=== PATIENT | female | born 1995 | race Caucasian/White ===

== ENCOUNTER → 2017-03-03 | Outpatient (CLI) | payer BC ==
[2017-03-06 15:43] LABS: CHLAMYDIA TRACH RNA*** NOT DETECTED (NOT DETECTED); GC (NEIS GONORRHOEAE)RNA** NOT DETECTED (NOT DETECTED)
== END | disposition home or self-care (01) ==
LOC: C.LABSPEC 17:27
PROVIDERS: ATTEND Physician Assistant
DX: Z01.419 Encounter for gynecological examination (general) (routine) without abnormal findings (principal)

== ENCOUNTER 2025-01-20 07:56 | Inpatient (IN) ==
[2025-01-20] MEDS ORDERED: OXYTOCIN 30 UNITS/NSS 30 UNITS/500 ML BAG IV PRN ×2 (08:55→23:49)
[2025-01-20] MEDS ORDERED: LIDOCAINE 1% LOCAL 20 ML VIAL INFIL PRN (08:55)
--- NOTE | 2025-01-20 09:01 | History & Physical Report ---
Date of Service January 20, 2025 Assessment & Plan (1) Supervision of normal first : (2) SROM (spontaneous rupture of membranes): Plan 29 yo G1 at 37 6/7 wga presents w/ srom/labor Mild range bp noted but pt painful and fairly anxious. Denies s/s, will get pih labs as well Fetus cat 1 Labor - will see how ctx go and can augment w/ pit prn GBS neg epidural prn History of Present Illness Chief Complaint: ctx, ?lof Primary Care Provider: Jnenifer Perkins MD 29 yo G1 at 37 6/7 wga presents w/ worsening ctx and LOF. Initially called w/ mucous plug coming out around 3-4am, then over the next hour ctx and lof worsened so presented for evaluation. +FM and ctx at home q5. 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 remote hx ct Allergies Allergy/AdvReac Type Severity Reaction Status Date / Time Pork/Porcine Containing Allergy Nausea/Vomi Verified 01/20/25 09:00 Products ting Home Medications Medication Instructions Recorded Confirmed Type vitamin PO DAILY 02/21/24 01/14/25 History omega-3 fatty acids [Fish Oil] PO 06/19/24 01/14/25 History aspirin 81 mg tablet,delayed 81 mg PO DAILY 08/20/24 01/14/25 History release (Adult Low Dose Aspirin) Patient History Medical History LGSIL on Pap smear of cervix Chlamydia Alcoholic intoxication Hypertension Fractured medial malleolus (03/13/13) Surgical History Status post colposcopy S/P wisdom tooth extraction Status post ORIF of fracture of ankle History of removal of skin mole History of biopsy Family History Grandmother (Maternal) Breast cancer Mother Hypertension Grandfather (Maternal) Hypertension Grandfather (Paternal) Dementia Family/Other Skin cancer Denies family history of Ovarian cancer Prostate cancer Myocardial infarction Colorectal cancer Social History Smoking Status: Former smoker Tobacco Type: Cigarettes Second Hand Exposure: No; Do You Dip or Chew Tobacco: No; Hx Alcohol Use: No Hx Substance Use: No Preferred Language: Kiswahili Communication Ability: Effective 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 Beliefs That Will Affect Care: None and Orthodoxy Orthodoxy Beliefs: rastafari marital status: marital status details: Alonso Madison([phone] Current Living Situation: Spouse Current Living Situation Comment: lives with spouse, cat-spouse to change litter current occupational status: employed 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 caffeine: Yes Dental Care, Regularly: Yes Physical Activity Frequency: 1-2 Times per Week Seatbelt Use: always Sunscreen Use: Yes Assistive Devices: Contacts and Glasses Physical Exam Genitourinary: OB Exam Abdomen: + estimated weight (7-8) Manual OB Exam: + cervical dilation 3 cm, + cervical effacement 70%, + station -2 and + amniotic fluid (+nitrazine, pooling, ferning) OB Exam Monitor Tracing: + external FHT monitor used, + external uterine monitor used and + category I (130/mod/+accel/-decel) Results & Data Vital Signs (Past 12 Hours) Vital Signs Temp Pulse Resp BP 01/20/25 08:28 101 H 132/90 01/20/25 08:18 108 H 148/90 H 01/20/25 08:07 104 H 152/97 H 01/20/25 08:06 18 01/20/25 08:06 97.9 F 18 Laboratory Results OB Labs: Blood Type O Positive 07/22/24 Antibody Screen NEGATIVE 07/22/24 Hgb 11.3 g/dl (12.0-16.0) L 11/11/24 Hct 33.3 % (37.0-47.0) L 11/11/24 MCV 87.8 fL (80.0-100.0) 07/22/24 Plt Count 370 K/uL (130-400) 07/22/24 Rubella IgG Antibody Immune (Immune) 07/22/24 Treponema pallidum Ab Negative (Negative) 11/11/24 Hep Bs Antigen Negative (Negative) 07/22/24 Hepatitis C Antibody Negative (Negative) 07/22/24 HIV 1&2 Ab/P24 Ag 4thGn Negative (Negative) 07/22/24 Glucose 1 Hr 50 gm 148 mg/dl (70-130) H 11/11/24 OB Optional Labs: Chlamydia trachomatis RNA Not Detected (NotDetected) 07/22/24 Neisseria gonorrhoeae RNA Not Detected (NotDetected) 07/22/24 Thyroid Stimulating Hormone (TSH) 2.610 uIu/ml (0.300-4.500) 04/05/21 Labs Reviewed: carrier screening-negative--mln cfdna-low risk--mln GBS neg Diagnostic Findings 01/08 EFW 47%, AC 52%, ant plac Coding Level of Care Code None Diagnoses Supervision of normal first Z34.00 SROM (spontaneous rupture of membranes)
[2025-01-20] MEDS: LACTATED RINGER'S 1,000 ML IV PRN (09:20)
[2025-01-20 09:32] LABS: Hematocrit (blood only) 33.8 % (37.0-47.0); Hemoglobin 11.3 g/dl (12.0-16.0); Mean Corpuscular Hemoglobin 28.5 pg (25.0-34.0); Mean Corpuscular Hgb Conc 33.4 g/dL (32.0-36.0); Mean Corpuscular Volume 85.4 fL (80.0-100.0); Mean Platelet Volume 9.7 fL (9.4-12.4); Platelet Count 240 K/uL (130-400); RDW Coefficient of Variation 14.2 % (11.5-14.5); RDW Standard Deviation 43.9 fL (36.4-46.3); Red Blood Count 3.96 M/uL (4.20-5.40); White Blood Count 9.93 K/ul (4.8-10.8)
[2025-01-20 09:48] LABS: Albumin Globulin Ratio 1.4 (0.9-2); Albumin Level 3.7 gm/dl (3.4-5.0); BUN Creatinine Ratio 10.2 (10-20); Bilirubin,Total 0.4 mg/dl (0.2-1.0); Calcium 8.9 mg/dl (8.6-10.3); Creatinine Clr Calc Pharmacy 178.1 ml/min; Globulin 2.7 gm/dl (2.5-4.0); Potassium 3.9 mmol/L (3.5-5.1); Total Protein 6.4 gm/dl (6.0-8.3)
[2025-01-20] MEDS ORDERED: NALOXONE HCL 0.4 MG/1 ML VIAL/CARP IV PRN (14:25)
[2025-01-20] MEDS ORDERED: fentaNYL citrate PF 100 MCG/2 ML VIAL EPI PRN (14:25)
[2025-01-20] MEDS ORDERED: ROPIVACAINE 0.5% PF 5 MG/ML 20 ML VIAL EPI PRN (14:25)
[2025-01-20] MEDS ORDERED: fentANYL 2 MCG/ML BUPIVacaine 0.125%-NSS 100ML BAG EPI PRN (14:25)
[2025-01-20] MEDS ORDERED: diphenhydrAMINE 50 MG/ML VIAL IV PRN (14:25)
[2025-01-20] MEDS ORDERED: NALOXONE HCL 1 MG in SODIUM CHLORIDE 0.9% 1,000 ML IV PRN (14:25)
[2025-01-20] MEDS ORDERED: LIDOCAINE 2% MPF LOCAL 5 ML VIAL EPI PRN (14:25)
[2025-01-20] MEDS ORDERED: SODIUM CHLORIDE 0.9% PF INJ 10 ML VIAL EPI PRN (14:25)
[2025-01-20] MEDS ORDERED: NALBUPHINE HCL INJ 10 MG/ML AMP IV PRN (14:25)
--- NOTE | 2025-01-20 14:28 | Anesthesiology Consultation ---
Date of Service January 20, 2025 Assessment & Plan Chart Review Chart Review: Patient NOT seen in Pre Admission Testing and Acceptable Risk for Labor Epidural Consults Requested none ASA ASA2 Proposed Anesthesia Anesthesia Type: Labor Epidural Risk / Benefits Reviewed With: PT / POA / Parent / Guardian, Accepts Plan and Informed Consent Obtained History Height/Weight Height: 5 ft 3 in Weight: 90.974 kg Allergies Allergy/AdvReac Type Severity Reaction Status Date / Time Pork/Porcine Containing Allergy Nausea/Vomi Verified 01/20/25 09:00 Products ting Medications Home Medications Medication Instructions Recorded Confirmed Last Taken vitamin PO DAILY 02/21/24 01/14/25 01/19/25 20:00 omega-3 fatty acids [Fish Oil] PO 06/19/24 01/14/25 01/19/25 aspirin 81 mg tablet,delayed 81 mg PO DAILY 08/20/24 01/14/25 01/19/25 20:00 release (Adult Low Dose Aspirin) Active Medications Generic Name Dose Route Start Last Admin Trade Name Freq PRN Reason Stop Dose Admin Bupivacaine HCl 30 ml 01/20/25 14:25 01/20/25 14:53 Bupivacaine 0.25% Pf 30 Ml Vial EPI 01/21/25 14:24 30 ml ONCE PRN Administration Epidural Redose Lactated Ringer's 1,000 mls @ 125 mls/hr 01/20/25 08:55 01/20/25 14:28 Lr IV 01/21/25 08:54 999 mls/hr .Q8H PRN Administration L&D Protocol Protocol NPO Date Last Intake of Fluids: 01/20/25 Time Last Intake of Fluids: 14:00 Date Last Intake of Solids: 01/19/25 Time Last Intake of Solids: 17:00 Past Medical History Medical History LGSIL on Pap smear of cervix Chlamydia Alcoholic intoxication Hypertension Fractured medial malleolus (03/13/13) Exercise / Class Metabolic Activity 1 > 8 Run/Swim/Ski/Tennis Past Family History Family History Grandmother (Maternal) Breast cancer Mother Hypertension Grandfather (Maternal) Hypertension Grandfather (Paternal) Dementia Family/Other Skin cancer Denies family history of Ovarian cancer Prostate cancer Myocardial infarction Colorectal cancer Past Surgical History Surgical History Status post colposcopy S/P wisdom tooth extraction Status post ORIF of fracture of ankle History of removal of skin mole 2015; back History of biopsy Past Anesthesia History No Hx of Anesthesia Complications and No Family Hx of Anesthesia Complications History of PONV No Hx of PONV and No Hx of Motion Sickness Social History Smoking Status: Former smoker Do You Dip or Chew Tobacco: No Hx Alcohol Use: No Hx Substance Use: No Review of Systems ROS Unobtainable: All systems reviewed & are unremarkable except as noted in HPI & below Physical Exam Vital Signs Last Vital Signs Temp 36.8 C 01/20/25 12:37 Pulse 90 01/20/25 13:50 Resp 18 01/20/25 13:00 BP 139/82 01/20/25 13:50 ENMT Mouth: no TMJ abnormality Thyromental Distance: > or= 3.5 Finger Breadths Mallampati Class: II Neck normal visual inspection and trachea midline; neck extension not limited Respiratory normal respiratory effort Auscultation: lungs clear to auscultation bilaterally Cardiovascular Rate/Rhythm: regular rate and regular rhythm Heart Sounds: no murmur Musculoskeletal Spine: normal cervical ROM Extremities: full ROM of extremities Neurologic moves all extremities Psychiatric Orientation: alert and oriented x 3 Testing Laboratory Results 01/20/25 09:00 01/20/25 09:05 Blood Type O Positive 01/20/25 09:00 Antibody Screen NEGATIVE 01/20/25 09:00
[2025-01-20] MEDS: fentANYL 2 MCG/ML BUPIVacaine 0.125%-NSS 100ML BAG ONE (14:52)
[2025-01-20] MEDS: BUPIVACAINE 0.25% PF 30 ML VIAL EPI STA (14:53)
[2025-01-20] MEDS: BUPIVACAINE 0.25% PF 30 ML VIAL EPI PRN (14:53)
[2025-01-20] MEDS: fentaNYL citrate PF 100 MCG/2 ML VIAL EPI STA (14:53)
[2025-01-20] MEDS: LIDOCAINE 2%/EPINEPHRINE 1:200,000 20 ML PF EPI STA (14:53)
[2025-01-20] MEDS: ePHEDrine sulfate 50 MG/ML AMP IV PRN (15:15)
[2025-01-20] MEDS: OXYTOCIN 30 UNITS/NSS 30 UNITS/500 ML BAG IV PRN (15:45)
[2025-01-20] MEDS: SODIUM CHLORIDE 0.9% PF INJ 10 ML VIAL ONE (15:54)
[2025-01-20] MEDS: BUPIVACAINE 0.25% PF 30 ML VIAL ONE (15:54)
[2025-01-20] MEDS: fentaNYL citrate PF 100 MCG/2 ML VIAL ONE (15:55)
[2025-01-20] MEDS: ePHEDrine sulfate 50 MG/ML AMP ONE (15:55)
[2025-01-20] MEDS: LIDOCAINE 2%/EPINEPHRINE 1:200,000 20 ML PF ONE (15:55)
[2025-01-20] MEDS: SODIUM CHLORIDE 0.9% PF INJ 10 ML VIAL EPI STA (15:56)
--- NOTE | 2025-01-20 16:40 | Labor Progress Brief Note ---
Date of Service January 20, 2025 Subjective comfortable w/ epidural Assessment & Plan (1) Supervision of normal first : (2) SROM (spontaneous rupture of membranes): Plan 29 yo G1 at 37 6/7 wga presents w/ srom/labor Mild range bp noted but pt painful and fairly anxious. Denies s/s, will get pih labs as well Fetus cat 1 Labor - pit started as ctx spaced, progress noted. GBS neg epidural in place Admission and Anticipated Discharge Date Admission Date: January 20, 2025 Physical Exam Genitourinary: Manual OB Exam: + cervical dilation 4 cm, + cervical effacement 90% and + station -2 OB Exam Monitor Tracing: + external FHT monitor used, + external uterine monitor used (q4) and + category I (130/mod/+accel/-decel) Results & Data Vital Signs (Past 12 Hours) Vital Signs Temp Pulse Resp BP Pulse Ox 01/20/25 16:36 111 H 90 01/20/25 16:34 114 H 100 01/20/25 16:33 105 H 122/64 01/20/25 16:29 102 H 100 01/20/25 16:24 104 H 100 01/20/25 16:20 112 H 92 01/20/25 16:19 114 H 100 01/20/25 16:18 123 H 116/62 01/20/25 16:14 123 H 92 01/20/25 16:09 106 H 100 01/20/25 16:04 130 H 95 01/20/25 16:03 110 H 122/64 01/20/25 16:00 18 01/20/25 16:00 18 01/20/25 15:59 123 H 100 01/20/25 15:54 116 H 100 01/20/25 15:49 120 H 100 01/20/25 15:44 122 H 113/59 L 97 01/20/25 15:40 121 H 112/58 L 01/20/25 15:39 122 H 100 01/20/25 15:36 112 H 124/60 01/20/25 15:34 102 H 100 01/20/25 15:29 114 H 112/60 99 01/20/25 15:24 115 H 110/61 100 01/20/25 15:20 94 H 116/62 01/20/25 15:19 91 H 100 01/20/25 15:16 136 H 106/62 01/20/25 15:14 94 H 101/56 L 100 01/20/25 15:13 107 H 93 01/20/25 15:12 100 H 83/46 L 01/20/25 15:10 93 H 82/47 L 01/20/25 15:09 92 H 100 01/20/25 15:05 111 H 93/50 L 01/20/25 15:04 111 H 100 01/20/25 14:59 100 01/20/25 14:59 112 H 01/20/25 14:59 121 H 103/59 L 01/20/25 14:57 101 H 94/53 L 01/20/25 14:55 95 H 85/48 L 01/20/25 14:54 82 100 01/20/25 14:53 106 H 98/50 L 01/20/25 14:51 116 H 128/73 01/20/25 14:49 121 H 127/79 100 01/20/25 14:48 118 H 94 01/20/25 14:47 118 H 182/92 H 01/20/25 14:45 114 H 159/95 H 01/20/25 14:44 109 H 100 01/20/25 14:43 102 H 132/86 01/20/25 14:39 115 H 100 01/20/25 14:34 109 H 100 01/20/25 13:50 90 139/82 01/20/25 13:00 18 01/20/25 13:00 18 01/20/25 12:37 20 01/20/25 12:37 98.2 F 20 01/20/25 10:49 98.4 F 18 01/20/25 10:44 92 H 139/85 01/20/25 08:28 101 H 132/90 01/20/25 08:18 108 H 148/90 H 01/20/25 08:07 104 H 152/97 H 01/20/25 08:06 18 01/20/25 08:06 97.9 F 18 Coding Level of Care Code None Diagnoses Supervision of normal first Z34.00 SROM (spontaneous rupture of membranes)
[2025-01-20 18:00] LABS: Protein Creatinine Ratio Urine 0.3 (0-0.2); Total Protein Urine Random 19.4 mg/dl (0-11.9)
--- NOTE | 2025-01-20 19:41 | Labor Progress Brief Note ---
Date of Service January 20, 2025 Subjective comfortable w/ epidural Assessment & Plan (1) Supervision of normal first : (2) SROM (spontaneous rupture of membranes): Plan 29 yo G1 at 37 6/7 wga presents w/ srom/labor VSS - UP:C returned as 0.3 and she had intermittent elev bps before epidural but unsure if pain related or when she was resting. Will need to continue to monitor Fetus cat 1 Labor - pit at 6 w/ good progress. Will continue repositoining and hopefully can start pushing in a bit GBS neg epidural in place Admission and Anticipated Discharge Date Admission Date: January 20, 2025 Physical Exam Genitourinary: Manual OB Exam: + cervical dilation, + cervical effacement 90% and + station 0 OB Exam Monitor Tracing: + external FHT monitor used, + external uterine monitor used (q4) and + category I (130/mod/+accel/-decel) Results & Data Vital Signs (Past 12 Hours) Vital Signs Temp Pulse Resp BP Pulse Ox 01/20/25 19:36 126 H 100 01/20/25 19:34 117 H 116/96 01/20/25 19:31 120 H 97 01/20/25 19:26 118 H 100 01/20/25 19:21 113 H 100 01/20/25 19:16 110 H 100 01/20/25 19:11 123 H 100 01/20/25 19:06 119 H 100 01/20/25 19:00 18 01/20/25 19:00 98.8 F 18 01/20/25 18:49 100 01/20/25 18:49 115 H 01/20/25 18:49 110 H 129/72 01/20/25 18:44 114 H 100 01/20/25 18:39 107 H 100 01/20/25 18:34 105 H 100 01/20/25 18:33 111 H 127/73 01/20/25 18:30 18 01/20/25 18:30 18 01/20/25 18:29 105 H 100 01/20/25 18:24 110 H 100 01/20/25 18:19 93 01/20/25 18:19 112 H 01/20/25 18:19 109 H 130/77 01/20/25 18:14 114 H 96 01/20/25 18:09 106 H 100 01/20/25 18:04 105 H 100 01/20/25 18:03 120 H 122/79 01/20/25 18:00 18 01/20/25 18:00 18 01/20/25 17:59 108 H 100 01/20/25 17:54 113 H 100 01/20/25 17:49 105 H 100 01/20/25 17:48 104 H 123/82 01/20/25 17:44 108 H 100 01/20/25 17:42 109 H 92 01/20/25 17:39 110 H 100 01/20/25 17:37 113 H 90 01/20/25 17:34 110 H 99 01/20/25 17:33 99 H 123/79 01/20/25 17:30 18 01/20/25 17:30 98.1 F 18 01/20/25 17:30 18 01/20/25 17:30 18 01/20/25 17:29 118 H 100 01/20/25 17:24 103 H 100 01/20/25 17:19 96 H 100 01/20/25 17:18 111 H 114/73 01/20/25 17:14 112 H 100 01/20/25 17:09 107 H 100 01/20/25 17:04 118 H 100 01/20/25 17:03 115 H 113/82 01/20/25 17:00 105 H 93 01/20/25 16:59 99 H 100 01/20/25 16:54 105 H 100 01/20/25 16:49 108 H 100 01/20/25 16:48 115 H 125/69 01/20/25 16:45 108 H 89 L 01/20/25 16:44 117 H 100 01/20/25 16:39 109 H 100 01/20/25 16:37 18 01/20/25 16:37 18 01/20/25 16:36 111 H 90 01/20/25 16:34 114 H 100 01/20/25 16:33 105 H 122/64 01/20/25 16:30 18 01/20/25 16:30 18 01/20/25 16:29 102 H 100 01/20/25 16:24 104 H 100 01/20/25 16:20 112 H 92 01/20/25 16:19 114 H 100 01/20/25 16:18 123 H 116/62 04/28/25 16:14 123 H 92 01/20/25 16:09 106 H 100 01/20/25 16:04 130 H 95 01/20/25 16:03 110 H 122/64 01/20/25 16:00 18 01/20/25 16:00 18 01/20/25 15:59 123 H 100 01/20/25 15:54 116 H 100 01/20/25 15:49 120 H 100 01/20/25 15:44 122 H 113/59 L 97 01/20/25 15:40 121 H 112/58 L 01/20/25 15:39 122 H 100 01/20/25 15:36 112 H 124/60 01/20/25 15:34 102 H 100 01/20/25 15:29 114 H 112/60 99 01/20/25 15:24 115 H 110/61 100 01/20/25 15:20 94 H 116/62 01/20/25 15:19 91 H 100 01/20/25 15:16 136 H 106/62 01/20/25 15:14 94 H 101/56 L 100 01/20/25 15:13 107 H 93 01/20/25 15:12 100 H 83/46 L 01/20/25 15:10 93 H 82/47 L 01/20/25 15:09 92 H 100 01/20/25 15:05 111 H 93/50 L 01/20/25 15:04 111 H 100 01/20/25 14:59 100 01/20/25 14:59 112 H 01/20/25 14:59 121 H 103/59 L 01/20/25 14:57 101 H 94/53 L 01/20/25 14:55 95 H 85/48 L 01/20/25 14:54 82 100 01/20/25 14:53 106 H 98/50 L 01/20/25 14:51 116 H 128/73 01/20/25 14:49 121 H 127/79 100 01/20/25 14:48 118 H 94 01/20/25 14:47 118 H 182/92 H 01/20/25 14:45 114 H 159/95 H 01/20/25 14:44 109 H 100 01/20/25 14:43 102 H 132/86 01/20/25 14:39 115 H 100 01/20/25 14:34 109 H 100 01/20/25 13:50 90 139/82 01/20/25 13:00 18 01/20/25 13:00 18 01/20/25 12:37 20 01/20/25 12:37 98.2 F 20 01/20/25 10:49 98.4 F 18 01/20/25 10:44 92 H 139/85 01/20/25 08:28 101 H 132/90 01/20/25 08:18 108 H 148/90 H 01/20/25 08:07 104 H 152/97 H 01/20/25 08:06 18 01/20/25 08:06 97.9 F 18 Coding Level of Care Code None Diagnoses Supervision of normal first Z34.00 SROM (spontaneous rupture of membranes)
--- NOTE | 2025-01-20 22:04 | Anesthesia Procedure Note ---
Date of Service January 20, 2025 Anesthesia Post Epidural Note Vital Signs Vital Signs: Temp Pulse Resp BP Pulse Ox 37.2 C 124 H 18 119/59 L 97 01/20/25 21:05 01/20/25 22:01 01/20/25 21:05 01/20/25 21:56 01/20/25 22:01 Notes Mental Status: alert / awake / arousable and participated in evaluation Nausea / Vomiting: adequately controlled Pain: adequately controlled Airway Patency, RR, SpO2: stable & adequate BP & HR: stable & adequate Hydration State: stable & adequate Neuraxial Anesthesia: was administered and sensory block is resolving Anesthetic Complications: no major complications apparent Epidural: Removed without complications and With tip intact
--- NOTE | 2025-01-20 23:11 | Delivery Summary ---
Vaginal Delivery Summary Date of Service January 20, 2025 Vaginal Delivery Summary and 1st Degree LAC PREOPERATIVE DIAGNOSIS: 1. Single intrauterine at 37 6/7 wga 2. SROM POSTOPERATIVE DIAGNOSIS: 1. Single intrauterine at 37 6/7 wga 2. SROM 3. Delivered PROCEDURE: 1. Normal spontaneous vaginal delivery. SURGEON: Alison Reddy MD ANESTHESIA: Epidural. QUANTITATIVE BLOOD LOSS: 100 mL FLUIDS: Continuous LR. URINE OUTPUT: None. COMPLICATIONS: None. CONDITION: Stable. INDICATIONS: 29 yo G1 at 37 6/7 wga presented with ctx and LOF and found to be srom. She received an epidural and started on pitocin due to ctx spacing. She progressed to complete and desired to push FINDINGS: A viable male infant, weight pending with Apgars of 9 and 9 at 1 and 5 minutes respectively. SPECIMEN: Cord blood OPERATIVE REPORT: The patient progressed to 10 cm, 100% effaced and +2 station, pushed over intact perineum with anesthesia to deliver a viable male , weight and Apgars as above. Head of delivered in LINCOLN position. No nuchal cord was present. Body and shoulders were delivered without difficulty. was delivered to maternal abdomen and nursing staff. Delayed cord clamping was performed for 60 seconds. Cord was clamped and cut. Cord blood was obtained. Placenta delivered spontaneously intact with 3-vessel cord. IV oxytocin and fundal massage were given for excellent hemostasis. Vagina, cervix, perineum, and placenta were inspected. A first degree laceration was repaired using 3-0 vicryl. There was excellent hemostasis Sponge and needle counts correct x2. No sponges were left behind. Mother and stable in immediate period. [facility] – [place], [place] Vaginal Delivery Charge Vaginal Delivery Codes: 39195 global code for the antepartum, delivery, and post- Delivery Type Details: and 1st Degree LAC
[2025-01-20] MEDS ORDERED: ACETAMINOPHEN 325 MG TAB PO PRN (23:49)
[2025-01-20] MEDS ORDERED: HYDROCORTISONE ACETATE 25 MG SUPP PR PRN (23:49)
[2025-01-20] MEDS ORDERED: bisacodyL 10 MG SUPP PR PRN (23:49)
[2025-01-21] MEDS: IBUPROFEN 600 MG TAB PO PRN (00:01)
[2025-01-21] MEDS: BENZOCAINE 20% SPRY 85 APPLN/85 GM CAN EXT PRN (00:02)
[2025-01-21] MEDS: DIPHTHER/TETAN/PERTUS Vaccine (Tdap, Adol/Adult) 0.5mL IM ONE (01:04)
[2025-01-21] MEDS ORDERED: Nursing to Pharmacy Communication SCH (07:45)
--- NOTE | 2025-01-21 07:46 | Obstetrical Progress Note ---
Date of Service January 21, 2025 Assessment & Plan (1) Encounter for care and examination after delivery: 29 yo PP1 from , doing well -Meeting all pp milestones -O+/rubella immune/ -f/u 6 weeks for appt. Few mild range bps after delivery but had normal labs other than UP:C 0.3 yesterday. Will continue to monitor Subjective Ambulation: ambulating normally Voiding: no voiding problems Passing Gas:: Yes Diet Tolerance:: regular diet Lochia:: Small Feeding Type:: breast feeding Pain well managed with medication Review of Systems Denies fevers, chills, n/v, LEVIN, CP, SOB Physical Exam Constitutional WD/WN, vitals as above no acute distress Respiratory normal respiratory effort, lungs clear to auscultation Cardiovascular RRR, no murmur, no edema Gastrointestinal (Abdomen) Percussion/Palpation: abdomen soft; abdomen nontender fundus firm at umbilicus and NT Musculoskeletal BLE symmetric, nonerythematous, nontender Results & Data Vital Signs (Past 12 Hours) Vital Signs Temp Pulse Pulse Resp BP BP Pulse Ox 01/21/25 03:10 98.1 F 91 H 18 115/72 96 01/21/25 00:15 98.4 F 98 H 16 144/86 H 98 01/20/25 23:56 101 H 145/80 H 01/20/25 23:41 98 H 147/78 H 01/20/25 23:26 99 H 139/70 01/20/25 23:11 115 H 173/119 H 01/20/25 22:56 104 H 132/71 01/20/25 22:41 112 H 125/66 01/20/25 22:26 111 H 129/71 01/20/25 22:11 116 H 121/62 01/20/25 22:01 124 H 97 01/20/25 21:56 125 H 119/59 L 97 01/20/25 21:51 126 H 97 01/20/25 21:46 130 H 98 01/20/25 21:41 133 H 96 01/20/25 21:36 156 H 100 01/20/25 21:32 132 H 91 01/20/25 21:31 135 H 96 01/20/25 21:26 134 H 120/58 L 99 01/20/25 21:21 134 H 98 01/20/25 21:20 135 H 85 L 01/20/25 21:16 125 H 97 01/20/25 21:11 135 H 136/66 99 01/20/25 21:06 133 H 99 01/20/25 21:05 18 01/20/25 21:05 99.0 F 18 01/20/25 21:01 135 H 100 01/20/25 20:56 99 01/20/25 20:56 129 H 01/20/25 20:56 126 H 134/68 01/20/25 20:51 128 H 100 01/20/25 20:46 142 H 100 01/20/25 20:41 141 H 122/67 100 01/20/25 20:36 153 H 90 01/20/25 20:31 143 H 100 01/20/25 20:26 135 H 125/71 100 01/20/25 20:21 141 H 100 01/20/25 20:16 137 H 100 01/20/25 20:11 132 H 122/63 100 01/20/25 20:06 124 H 100 01/20/25 20:01 124 H 100 01/20/25 19:57 126 H 125/63 01/20/25 19:56 127 H 100 01/20/25 19:51 116 H 100 01/20/25 19:46 122 H 100 01/20/25 19:41 124 H 100 O2 Del Method 01/21/25 03:10 Room Air 01/21/25 00:15 Room Air 01/20/25 23:56 01/20/25 23:41 01/20/25 23:26 01/20/25 23:11 01/20/25 22:56 01/20/25 22:41 01/20/25 22:26 01/20/25 22:11 01/20/25 22:01 01/20/25 21:56 01/20/25 21:51 01/20/25 21:46 01/20/25 21:41 01/20/25 21:36 01/20/25 21:32 01/20/25 21:31 01/20/25 21:26 01/20/25 21:21 01/20/25 21:20 01/20/25 21:16 01/20/25 21:11 01/20/25 21:06 01/20/25 21:05 01/20/25 21:05 01/20/25 21:01 01/20/25 20:56 01/20/25 20:56 01/20/25 20:56 01/20/25 20:51 01/20/25 20:46 01/20/25 20:41 01/20/25 20:36 01/20/25 20:31 01/20/25 20:26 01/20/25 20:21 01/20/25 20:16 01/20/25 20:11 01/20/25 20:06 01/20/25 20:01 01/20/25 19:57 01/20/25 19:56 01/20/25 19:51 01/20/25 19:46 01/20/25 19:41
[2025-01-21] MEDS: PRENATAL VITAMIN 1 TAB PO SCH (07:48)
[2025-01-21] MEDS ORDERED: DOCUSATE SODIUM 100 MG CAP PO SCH (08:00)
[2025-01-21] MEDS: DOCUSATE SODIUM SYRUP 100 MG/10 ML UDC PO SCH (08:22)
[2025-01-21] MEDS: bisacodyL 5 MG TABEC PO SCH (20:55)
--- NOTE | 2025-01-22 07:19 | Obstetrical Progress Note ---
Date of Service January 22, 2025 Assessment & Plan (1) Encounter for care and examination after delivery: Day 2 status post vaginal delivery. Patient doing well and stable for discharge. Has been normotensive for the past 24 hours with a few mild range blood pressures noted after delivery. Denying preeclampsia symptoms Subjective Ambulation: ambulating normally Voiding: no voiding problems Passing Gas:: Yes Diet Tolerance:: regular diet Lochia:: Moderate Physical Exam Constitutional WD/WN, vitals as above Respiratory normal respiratory effort; no respiratory distress and no labored breathing Cardiovascular Extremities: no calf tenderness Gastrointestinal (Abdomen) Inspection/Auscultation: abdomen normal to inspection; abdomen not distended Percussion/Palpation: abdomen soft; abdomen nontender, no guarding and abdomen not rigid Genitourinary OB Exam Abdomen: + fundal height Fundus: + firm and + relation to umbilicus (Below); not tender or not boggy Results & Data Vital Signs (Past 12 Hours) Vital Signs Temp Pulse Resp BP O2 Del Method 01/22/25 00:10 36.9 C 93 H 20 119/78 Room Air 01/21/25 20:38 36.6 C 90 20 122/94
[2025-01-22 10:28] VITALS: BP 135/87; RESP 16; TEMP 98.2; O2SAT 96
[2025-01-22 13:28] VITALS: PULSE 92
== END 2025-01-22 14:35 | disposition home or self-care (01) | DRG 807 ==
LOC: OPB 07:56 → 4S1 07:59 → 4E2 01-21 00:34
DX: Z87.891 Personal history of nicotine dependence; O42.02 Full-term premature rupture of membranes, onset of labor within 24 hours of rupture; Z37.0 Single live birth; Z79.82 Long term (current) use of aspirin; Z3A.38 38 weeks gestation of pregnancy; O70.0 First degree perineal laceration during delivery